=== PATIENT | male | born 1960 | race Caucasian/White ===

== ENCOUNTER → 2018-05-31 08:38 | Outpatient (CLI) | payer BC, SELFPAY ==
--- NOTE | 2018-05-31 08:58 | XR_ITS ---
XR hip LT 2-3V w/pelvis HISTORY: ITS.REASON: PAIN OF LEFT HIP JOINT ORDERING PHYSICIAN: Alessandra Leal PATIENT AGE: 57 years COMPARISON: None FINDINGS: No fracture or dislocation is evident. No significant degenerative change. No lytic or blastic change. Unremarkable soft tissues IMPRESSION: Negative hip
== END ==
PROVIDERS: PCP Nurse Practitioner; Visit Provider Nurse Practitioner
DX: M25.552 Pain in left hip (principal)
CPT/HCPCS: 73502

== ENCOUNTER 2021-12-04 11:45 | Emergency (ER) | payer OTHER, SELFPAY ==
[2021-12-04 11:47] VITALS: BP 134/89; PULSE 98; RESP 18; TEMP 36.5; O2SAT 97; BMI 31.3
--- NOTE | 2021-12-04 11:50 | HMH.EDUPEXT ---
ED Disposition Clinical Impression: Cellulitis and abscess of finger, unspecified Disposition: Home, Self-Care Condition on Discharge: Fair Instructions: Cellulitis Additional Instructions: Return to the emergency department immediately if you feel worse in any way. Follow-up with your primary care physician in 2 to 3 days to have the finger checked again. You have been prescribed any steroids I would strongly recommend that you not take them at this time since it could make the infection worse. Furthermore, your glucose (blood sugar) was elevated today. This could be because of your steroid shot you received at your doctor's office. However, it could also be the first indication that you have diabetes. Therefore, I strongly recommend that you follow-up with your primary care doctor in a few days to have your sugar checked again. He is take [id number] ibuprofen and/or Tylenol for the pain. Keep the affected area elevated. Do not soak the area in water. Prescriptions: Amoxicillin/Potassium Clav [Amox-Clav 875-125 mg Tablet] 1 tab PO BID #20 tab [facility] Status[facility] levoFLOXacin [Levaquin 500mg tab] 500 mg PO DAILY #10 tab Transmission Status: [facility] Referrals: Mary Pedraza MD [Primary Care Provider] - - Critical Care Critical Care Time: No Attestation: On , the high probability of a clinically significant, sudden or life threatening deterioration of the following system(s) required my full and direct attention, intervention and personal management. The time I documented below is in addition to time spent performing reported procedures but includes the following listed in this critical care notation. Medical Decision Making - Medical Records Medical records reviewed: Yes: I reviewed the patient's medical records. - Ovi Inquiry Pt receiving controlled substance: No Vital Signs: 12/04/21 11:47 Temperature 97.7 F Temperature Source Oral Pulse Rate [Right Radial] 98 H Respiratory Rate 18 Blood Pressure [Right Arm] 134/89 Blood Pressure Mean [Right Arm] 104 Blood Pressure Source [Right Arm] Automatic Cuff Blood Pressure Position [Right Arm] Sitting 02 Sat by Pulse Oximetry 97 Oxygen Delivery Method Room Air - Lab Data Lab results reviewed: Yes: I reviewed the patient's lab results. Lab Results 12/04/21 11:57: POC Glucose 244 H Orders (Tests/Meds): ED MEDICATIONS Discontinued Medications Generic Name Dose Route Start Last Admin Trade Name Chaim PRN Reason Stop Dose Admin Ketorolac Tromethamine 60 mg 12/04/21 11:54 Ketorolac 60mg/2ml Vial IM 12/04/21 11:55 ONCE ONE ORDERS Category Date Time Status Hand XR left 2 views [XR hand LT 2V] Stat Exams 12/04/21 11:53 Taken - Radiology Data #1 Image(s): Hand Image Reviewed: Yes I reviewed the patient's radiology image Preliminary Findings: Abnormal (Swelling of the middle finger. No foreign bodies identified.) Upper Extremity HPI - General Chief Complaint: Extremity Injury, Upper Stated Complaint: WC 4/7 f/o in lt hand Time Seen by Provider: 12/04/21 11:51 Mode of Arrival: Ambulatory Source of Information: Patient - History of Present Illness HPI narrative: The patient presents to the emergency department complaining of worsening left middle finger pain after having poked it on a welding wire on . Was at his doctor's office on Sunday and received what is probably a steroid shot for an upper respiratory infection. Denies being diabetic. - Related Data Previous Rx's Medication Instructions Recorded Amoxicillin/Potassium Clav 1 tab PO BID #20 tab 12/04/21 [Amox-Clav 875-125 mg Tablet] levoFLOXacin [Levaquin 500mg 500 mg PO DAILY #10 tab 12/04/21 tab] Allergies Allergy/AdvReac Type Severity Reaction Status Date / Time No Known Allergies Allergy Verified 12/04/21 12:01 [facility] History - Hepatit
--- NOTE | 2021-12-04 11:53 | XR_ITS ---
PROCEDURE INFORMATION: Exam: XR Left Hand Exam date and time: 12/04/2021 11:56 AM Age: 61 years old Clinical indication: Injury or trauma; Other: Puncture wound to left middle finger. ; Work related; Patient HX: Puncture wound caused by small piece of welding wire . ; Additional info: Injury lmf TECHNIQUE: Imaging protocol: XR Left hand. Views: 1 or 2 views. COMPARISON: No relevant prior studies available. FINDINGS: Bones/joints: Chronic ununited ulnar styloid fracture. Soft tissues: No radiopaque foreign body. IMPRESSION: No evidence of radiopaque foreign body.
--- NOTE | 2021-12-04 12:03 | PC.NURSE ---
Pt to Rad
[2021-12-04 12:04] LABS: POC Glucose,Bedside 244 (70-110)
[2021-12-04 12:37] VITALS: BP 141/75; PULSE 99; RESP 18; TEMP 36.8; O2SAT 96
== END 2021-12-04 12:38 | disposition home or self-care (01) ==
PROVIDERS: Emergency Provider Emergency Medicine; PCP Family Medicine
DX: L02.512 Cutaneous abscess of left hand (principal); L03.012 Cellulitis of left finger; W26.8XXA Contact with other sharp object(s), not elsewhere classified, initial encounter
CPT/HCPCS: 73120; 82962; 96372; 99285

== ENCOUNTER → 2021-12-12 10:29 | Outpatient (CLI) | payer OTHER, SELFPAY ==
--- NOTE | 2021-12-12 10:38 | XR_ITS ---
FINAL REPORT CLINICAL HISTORY: CELLULITIS OF LT MIDDLE FINGER COMPARISON: December 04, 2021 FINDINGS: 3 views of the left 3rd digit were obtained. There is no acute fracture or dislocation. There is mild degenerative change. There is soft tissue swelling of the 3rd digit. IMPRESSION: Soft tissue swelling with no acute bony abnormality. Reviewed, Interpreted and Dictated by Be Macias III, MD Transcribed by Kareem Gould Authenticated by Be Macias III, MD on 12/12/2021 01:33:22 PM [facility]
== END ==
PROVIDERS: PCP Nurse Practitioner Family; Visit Provider Nurse Practitioner Family
DX: L03.012 Cellulitis of left finger (principal)
CPT/HCPCS: 73140

== ENCOUNTER → 2021-12-19 09:58 | Outpatient (CLI) | payer OTHER, SELFPAY ==
--- NOTE | 2021-12-19 10:07 | XR_ITS ---
FINAL REPORT CLINICAL HISTORY: CELLULITIS OF LEFT HAND, welding injury, pain, pt unable to straighten hand out all the way COMPARISON: December 04, 2021 FINDINGS: 3 views of the left hand were obtained. The hand is held in partial flexion. There is no acute fracture or dislocation. The joint spaces are intact. There is mild soft tissue swelling of the dorsum of the hand. IMPRESSION: No acute bony abnormality. Reviewed, Interpreted and Dictated by Brendan Butler MD Transcribed by Kareem Gould Authenticated by Brendan Butler MD on 12/19/2021 12:16:13 PM [facility]
== END ==
PROVIDERS: PCP Nurse Practitioner Family; Visit Provider Nurse Practitioner Family
DX: L03.114 Cellulitis of left upper limb (principal)
CPT/HCPCS: 73130

== ENCOUNTER 2022-10-16 18:47 | Emergency (ER) | payer OTHER, SELFPAY ==
--- NOTE | 2022-10-16 19:14 | HMH.EDGENADL ---
Discharge Plan Disposition Patient Disposition: Xfer Other Prescriptions Prescriptions: No Action cefdinir 300 mg capsule 300 mg PO BID Label Comments: TAKE 1 CAPSULE BY MOUTH EVERY 12 HOURS FOR 14 DAYS sulfamethoxazole-trimethoprim 800-160 mg tablet 1 tab PO BID lisinopril 20 mg tablet 20 mg PO DAILY montelukast 10 mg tablet 10 mg PO DAILY Referrals Follow up/Referrals: Kathy Curry APRN [Primary Care Provider] - See instructions Clinical Impressions Clinical Impression: Acute ischemic left [employer] stroke Discharge ED Provider: Gio (ED)Markus General Adult HPI General Chief complaint: Headache Stated complaint: dizzy, right side hip to leg pain Time Seen by Provider: 10/16/22 19:14 History of Present Illness HPI narrative: Patient is a 61-year-old male presenting with headache as well as right-sided paresthesias weakness and numbness for the past 12 hours that presented suddenly this morning. States was also associated with significant loss of coordination. Pain is mild patient denies any history of any cardiovascular risk factors and no history of stroke. No sudden component of the headache no thunderclap aspect from historical standpoint. No fevers or chills no chest pain shortness of breath. He states that his right upper extremity and his right lower extremity feel different than the other side of my body . States his visual acuity is normal states he has not had any visual field losses. States his gait is wobbly . Related Data Home Medications Medication Instructions Recorded Confirmed cefdinir 300 mg capsule 300 mg PO BID 12/27/21 12/27/21 lisinopril 20 mg tablet 20 mg PO DAILY 12/27/21 12/27/21 montelukast 10 mg tablet 10 mg PO DAILY 12/27/21 12/27/21 sulfamethoxazole 800 1 tab PO BID 12/27/21 12/27/21 mg-trimethoprim 160 mg tablet Allergies Allergy/AdvReac Type Severity Reaction Status Date / Time No Known Allergies Allergy Verified 12/27/21 14:15 [facility] Disclaimer: The information contained in this section may have been updated after the patient was seen, as this information can be updated by other users. Social History Smoking Status: Current every day smoker alcohol intake: never current occupational status: employed Travel in the last 8 weeks: None ROS Obtained: Yes All systems reviewed & no additional complaints except as documented Physical Exam General General appearance: alert Respiratory Respiratory exam: Present normal lung sounds bilaterally and respiratory distress; Absent wheezes, stridor or accessory muscle use Cardiovascular Cardiovascular exam: Present regular rate and irregular rhythm Abdominal Exam Abdominal exam: Present soft; Absent distention, tenderness or guarding Neurological Exam Neurological exam: Present other (Cranial nerves II through XII are intact upper and lower extremities bilaterally are normal from a motor standpoint light touch and sensory component is normal peripheral upper and lower extremities. Heel andfinger to mcgill bilaterally normal. Patient is significantly ataxic with attempts to stand ) Medical Decision Making Ovi Inquiry Pt receiving controlled substance: No Ovi was queried for this patient: No Vital Signs: 10/16/22 19:15 Temperature 98.0 F Temperature Source Oral Pulse Rate [Left] 91 H Respiratory Rate 16 Blood Pressure [Right Arm] 127/85 Blood Pressure Mean [Right Arm] 99 02 Sat by Pulse Oximetry 96 Lab Data Lab Results 10/16/22 19:12: WBC 11.5 H, RBC 5.34, Hgb 15.2, Hct 46.0, MCV 86.2, MCH 28.6, MCHC 33.1, RDW 12.7, Plt Count 247, MPV 8.0, Neut % (Auto) 58.9, Lymph % (Auto) 31.8, Creek % (Auto) 6.1, Eos % (Auto) 2.2, Baso % (Auto) 1.0, Neut # (Auto) 6.8, Lymph # (Auto) 3.7, Creek # (Auto) 0.7, Eos # (Auto) 0.3, Baso # (Auto) 0.1 10/16/22 19:12: Sodium 137, Potassium 4.7, Chloride 106, Carbon Dioxide 25, Anion Gap 10.7, BUN 20, Creatinine 0.70, Estimat
[2022-10-16 19:15] VITALS: BP 127/85; PULSE 91; RESP 16; TEMP 36.7; O2SAT 96; BMI 36.0
--- NOTE | 2022-10-16 19:17 | CT_ITS ---
PROCEDURE INFORMATION: Exam: CT Head Without Contrast Exam date and time: 10/16/2022 7:33 PM Age: 61 years old Clinical indication: Stroke-like symptoms; Left upper extremity numbness/paresthesia; Additional info: Numbness on left side of body TECHNIQUE: Imaging protocol: Computed tomography of the head without contrast. Radiation optimization: All CT scans at this facility use at least one of these dose optimization techniques: automated exposure control; mA and/or kV adjustment per patient size (includes targeted exams where dose is matched to clinical indication); or iterative reconstruction. Other protocol: This patient has received 0 known CTs and 0 known cardiac nuclear medicine studies in the 12 months prior to the current study. Other technique: STROKE PROTOCOL was implemented. COMPARISON: No relevant prior studies available. FINDINGS: Brain: No acute intracranial hemorrhage, midline shift or intracranial mass effect. There is left temporal occipital low density. Low density at the left thalamus. Cerebral ventricles: No ventriculomegaly. Paranasal sinuses: Mild paranasal sinus disease. Mastoid air cells: There is mild partial opacification of the bilateral mastoid air cells. Bones/joints: Unremarkable. No acute fracture. Soft tissues: Unremarkable. IMPRESSION: 1. Negative for acute intracranial hemorrhage. 2. Probable acute infarct within the left [employer] territory. ASSESSMENT: ASPECTS (Xochitl Stroke Program Early CT Score) is 10.
--- NOTE | 2022-10-16 19:21 | PC.NURSE ---
Pt Gone to CT @ this time.
[2022-10-16 19:25] LABS: Basophils # 0.1 K/mm3 (0-0.2); Eosinophils # 0.3 K/mm3 (0.0-0.4); Eosinophils % 2.2 % (0.1-12.0); Hemoglobin 15.2 g/dL (14.1-18.0); Lymphocytes # 3.7 K/mm3 (0.7-4.5); Lymphocytes % 31.8 % (10-50); Mean Corpuscular HGB Conc 33.1 g/dL (31.8-35.4); Mean Corpuscular Hemoglobin 28.6 pg (27.0-31.2); Mean Corpuscular Volume 86.2 fl (80-94); Monocytes # 0.7 K/mm3 (0.1-1.0); Monocytes % 6.1 % (1.7-9.3); Neutrophils # 6.8 K/mm3 (1.8-7.8); Neutrophils % 58.9 % (37.0-80.0); Platelet Count 247 K/mm3 (142-424); Red Blood Count 5.34 M/mm3 (4.60-6.20); Red Cell Distribution Width 12.7 % (11.5-17.5); White Blood Count 11.5 K/mm3 (4.8-10.8)
[2022-10-16 19:29] LABS: Chloride 106 mmol/L (98-107); Potassium 4.7 mmoL/L (3.5-5.1); Sodium 137 mmol/L (136-145)
[2022-10-16 19:32] LABS: Alanine Aminotransferase 40 U/L (12-78); Albumin Level 4.3 g/dl (3.5-5.0); Albumin/Globulin Ratio 1.5 (1.1-1.8); Alkaline Phosphatase 62 U/L (38-126); Anion Gap 10.7 mEq/L (5-15); Aspartate Amino Transferase 35 U/L (17-59); Bilirubin,Total 0.4 mg/dl (0.2-1.3); Blood Urea Nitrogen 20 mg/dl (9-20); Calcium 9.4 mg/dl (8.4-10.2); Carbon Dioxide 25 mmol/L (22.0-30.0); Creatinine Clearance Estimated 112 mL/min (50-200); Estimated Glomerular Filt Rate 114 ml/min (>60); GFR (African American) 138 ML/MIN (>60); Globulin 2.8 g/dL (1.3-3.2); Glucose 190 mg/dl (74-100); Total Protein,Serum 7.1 g/dl (6.3-8.2)
--- NOTE | 2022-10-16 19:36 | CT_ITS ---
PROCEDURE INFORMATION: Exam: CTA Neck With Contrast Exam date and time: 10/16/2022 7:41 PM Age: 61 years old Clinical indication: Stroke-like symptoms; Other: Right sided numbness per patient. Numbness/paresthesia; Additional info: Left sided weakness and numbness TECHNIQUE: Imaging protocol: Computed tomographic angiography of the neck with contrast. 3D rendering (Not supervised by radiologist): MIP and/or 3D reconstructed images were created by the technologist. Radiation optimization: All CT scans at this facility use at least one of these dose optimization techniques: automated exposure control; mA and/or kV adjustment per patient size (includes targeted exams where dose is matched to clinical indication); or iterative reconstruction. Contrast material: ISOVUE 370; Contrast volume: 100 ml; Contrast route: INTRAVENOUS (IV); Other protocol: This patient has received 2 known CTs and 0 known cardiac nuclear medicine studies in the 12 months prior to the current study. COMPARISON: CT HEAD/BRAIN WO CON 10/16/2022 7:33 PM FINDINGS: Limitations: Limited by artifact arising from metallic dental hardware/dental amalgam. Right common carotid artery: Calcification at the right common carotid bifurcation without hemodynamically significant stenosis. Right internal carotid artery: No stenosis of the extracranial segment. No dissection or occlusion. Right external carotid artery: No occlusion or stenosis of the origin. Left common carotid artery: Calcification at the left common carotid bifurcation without hemodynamically significant stenosis. Left internal carotid artery: No stenosis of the extracranial segment. No dissection or occlusion. Left external carotid artery: No occlusion or stenosis of the origin. Right vertebral artery: High-grade stenosis or short segment occlusion at the proximal right vertebral artery. Left vertebral artery: Left vertebral artery is dominant. Severe stenosis at the origin of the left vertebral artery. There is severe stenosis at the distal left V1 segment extending to the proximal left V2 segment. Aorta: Aortic calcification. Soft tissues: Normal. No significant soft tissue swelling. Bones/joints: There are degenerative changes involving the spine. IMPRESSION: 1. Severe stenosis at the origin of the left vertebral artery with additional severe stenosis at the distal left V1 segment extending to the proximal V2 segment. 2. Short-segment high-grade stenosis or occlusion of the proximal right vertebral artery. REFERENCES: NASCET CRITERIA. The degree of stenosis in the cervical segment of the internal carotid artery is based on NASCET criteria. Normal is no stenosis. Mild is less than 50% stenosis. Moderate is 50-69% stenosis. Severe is 70% to 99% stenosis. Total occlusion is no detectable patent lumen.
--- NOTE | 2022-10-16 19:36 | CT_ITS ---
PROCEDURE INFORMATION: Exam: CTA Head With Contrast, Arteriography Exam date and time: 10/16/2022 7:41 PM Age: 61 years old Clinical indication: Stroke-like symptoms; Other: Entire right side numbness. Numbness/paresthesia; Additional info: Left sided weakness and numbness TECHNIQUE: Imaging protocol: Computed tomographic angiography of the head with contrast. Exam focused on the arteries. 3D rendering (Not supervised by radiologist): MIP and/or 3D reconstructed images were created by the technologist. Radiation optimization: All CT scans at this facility use at least one of these dose optimization techniques: automated exposure control; mA and/or kV adjustment per patient size (includes targeted exams where dose is matched to clinical indication); or iterative reconstruction. Contrast material: ISOVUE 370; Contrast volume: 100 ml; Contrast route: INTRAVENOUS (IV); Other protocol: This patient has received 2 known CTs and 0 known cardiac nuclear medicine studies in the 12 months prior to the current study. COMPARISON: CT HEAD/BRAIN WO CON 10/16/2022 7:33 PM FINDINGS: ANTERIOR CIRCULATION: Right internal carotid artery: Calcification involving the right carotid siphon without significant stenosis. Right middle cerebral artery: No occlusion or significant stenosis. No aneurysm. Right anterior cerebral artery: No occlusion or significant stenosis. No aneurysm. Left internal carotid artery: Calcification involving the left carotid siphon without significant stenosis. Left middle cerebral artery: No occlusion or significant stenosis. No aneurysm. Left anterior cerebral artery: No occlusion or significant stenosis. No aneurysm. 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 Left vertebral artery: Left vertebral artery is dominant. Basilar artery: No occlusion or significant stenosis. No aneurysm. Right posterior cerebral artery: No occlusion or significant stenosis. No aneurysm. Left posterior cerebral artery: Left ROLL [employer] O[employer]ATOR P2 occlusion. 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
[2022-10-16 19:55] LABS: Activated Partial Thrombo Time 23.4 seconds (22.8-30.6); INR 0.94 (0.9-1.1); Prothrombin Time 10.2 seconds (10.1-12.5)
--- NOTE | 2022-10-16 20:10 | PC.NURSE ---
pt on the phone with for stroke eval
--- NOTE | 2022-10-16 20:23 | PC.NURSE ---
Talked to Alecia about transfering patient @ this time.
--- NOTE | 2022-10-16 20:45 | PC.NURSE ---
on phone with Alecia at this time
[2022-10-16 21:10] VITALS: BP 149/69; PULSE 70; O2SAT 95
[2022-10-16 21:31] VITALS: BP 128/62; PULSE 75; O2SAT 94
--- NOTE | 2022-10-16 23:15 | PC.NURSE ---
Updated pt on wait times and that EMS would be here once the other truck returned from previous transfer., Pt agreeable with POC. B/P cuff and pulse ox removed, pt provided with warm blankets, helped into position of comfort. Lights were turned off, patient had call light within reach. No other needs at this time
--- NOTE | 2022-10-17 00:07 | PC.NURSE ---
rounded on patient. Patient voiced no needs at this time.
--- NOTE | 2022-10-17 00:48 | PC.NURSE ---
Round on patient. patient voiced no needs at this time.
[2022-10-17 01:43] VITALS: BP 121/50; PULSE 80; RESP 16; TEMP 36.8; O2SAT 97
== END 2022-10-17 01:53 | disposition short-term general hospital (02) ==
PROVIDERS: Student in an Organized Health Care Education/Training Program; Emergency Provider Emergency Medicine; PCP Nurse Practitioner Family
DX: I63.3 Cerebral infarction due to thrombosis of cerebral arteries (principal); F17.210 Nicotine dependence, cigarettes, uncomplicated
CPT/HCPCS: 70450; 70496; 70498; 80053; 85025; 85610; 85730; 96360; 99285; Q9967